=== PATIENT | male | born 1970 | race Caucasian/White ===

== ENCOUNTER 2019-05-09 21:05 | Emergency (ER) | payer SELFPAY ==
[~2019-05-09] VITALS: Ht 165.1 cm; Wt 69.4 kg
[~2019-05-09 21:05] MED LIST: GLIP10TA3 PO; METF500T PO; UNKNOWN INSULIN SUBQ
[2019-05-09 21:35] VITALS: BP 112/74
--- NOTE | 2019-05-09 21:49 | NUR ---
PT AMBULATED TO LOBBY TO A/W BED. CONCETTAD MADE AWARE OF PT [id number]
--- NOTE | 2019-05-09 22:55 | NUR ---
PT AMBULATED TO BED 12.
[2019-05-09] MEDS ORDERED: TETRACAINE HCL/PF 0.5% OPTH 4 ML BTL ONE (23:02)
[2019-05-09] MEDS: FLUORESCEIN OPTH STRIP 1 MG OP ONE (23:15)
[2019-05-09] MEDS: TETRACAINE HCL/PF 0.5% OPTH 4 ML BTL OP ONE (23:15)
--- NOTE | 2019-05-09 23:15 | NUR ---
DR TORIBIO AT BEDSIDE ASSESSING PATIENT
--- NOTE | 2019-05-09 23:30 | NUR ---
49 YEAR OLD MALE COMPLAINS OF SHARP EYE PAIN 10/10. PATIENTS LEFT EYEBALL WITH REDNESS, NO DISCHARGE PRESENT, SKIN SURROUNDING LEFT EYE IS INFLAMMED AND REDDENED. PATIENT STATES HE IS ABLE TO SEE NORMALLY OUT OF AFFECTED EYE. LACERATION NOTED ON LEFT CHEEK OF FACE. BED IN LOWEST POSITION, LOCKED, BED RAIL UPX1.
[2019-05-09 23:57] VITALS: BP 117/72
--- NOTE | 2019-05-09 23:57 | NUR ---
Discharge papers given to pt. He states pain reduced and tollerable. VSS. Lisbeth and verbal after care instructions given and explained. Patient alert, oriented and verbalized understanding of instructions. Ambulatory with steady gait. All questions addressed prior to discharge. ID band removed. Patient advised to follow up with PMD and instructed when to return to ER. Rx of Naprosyn given. Patient educated on indication of medication including possible reaction and side effects. Opportunity to ask questions provided and answered.
== END 2019-05-09 23:57 | disposition home or self-care (01) ==
LOC: MED 21:05
DX: S02.92XA Unspecified fracture of facial bones, initial encounter for closed fracture (principal); E11.9 Type 2 diabetes mellitus without complications; I10 Essential (primary) hypertension; Z79.84 Long term (current) use of oral hypoglycemic drugs; V09.9XXA Pedestrian injured in unspecified transport accident, initial encounter; Y93.89 Activity, other specified; Y92.89 Other specified places as the place of occurrence of the external cause; Y99.8 Other external cause status
CPT/HCPCS: 82948; 99284

== ENCOUNTER 2021-07-11 02:18 | Emergency (ER) | payer MEDICAID ==
[~2021-07-11] VITALS: Ht 165.1 cm; Wt 61.2 kg
[2021-07-11 02:26] VITALS: BP 158/103
--- NOTE | 2021-07-11 02:38 | NUR ---
pt taken to bed 02 via wc
[2021-07-11] MEDS ORDERED: HYDROcodone/APAP 5/325 MG 1 TAB TAB PO ONE (02:45)
[2021-07-11] MEDS ORDERED: CYCL-711 PO (02:46)
[2021-07-11 02:48] VITALS: BP 132/71
--- NOTE | 2021-07-11 02:52 | NUR ---
PATIENT DC HOME FEELING BETTER VITALS SIGNS IN NORMAL LIMITS ALL DC INSTRUCTION GAVE TO THE PATIENT WE RECOMMENDED TO FOLLOW UP WITH PCP OR COMING BACK TO THE EMERGENCY DEPARTMENT IF THE SYMPTOMS GET WORSE OR DOESNT IMPROVE //Kayla FAN
== END 2021-07-11 03:09 | disposition home or self-care (01) ==
LOC: MED 02:18
DX: S39.012A Strain of muscle, fascia and tendon of lower back, initial encounter (principal); E11.9 Type 2 diabetes mellitus without complications; I10 Essential (primary) hypertension; Z79.84 Long term (current) use of oral hypoglycemic drugs; Z79.899 Other long term (current) drug therapy; X58.XXXA Exposure to other specified factors, initial encounter; Y93.89 Activity, other specified; Y92.89 Other specified places as the place of occurrence of the external cause; Y99.8 Other external cause status
CPT/HCPCS: 99283

== ENCOUNTER 2021-07-14 01:21 | Emergency (ER) | payer MEDICAID ==
[~2021-07-14] VITALS: Ht 165.1 cm; Wt 65.8 kg
[~2021-07-14 01:21] MED LIST changes: +CYCL-711 PO
[2021-07-14 01:25] VITALS: BP 158/86
--- NOTE | 2021-07-14 01:25 | NUR ---
TO BED VIA WHEEL CHAIR
--- NOTE | 2021-07-14 01:36 | NUR ---
51 YO/M BIB SELF W C/O R LOWER BACK PAIN 03/07 X3 DAYS CONSTANT PRESSURE LIKE NON-RAD S/P FEELING APULL WHEN MOVING SELF FROM WHEELCHAIR TO BED. PT WAS SEEN HERE X3DAYS AGO AND DISCHARGED HOME BUT PAIN HAS NOT IMPROVED. PT DENIES BACK TRAUMA, LOSS OF CONTROL OVER BOWEL OR BLADDER, FEVERS, CHILLS, N/V/D. PT TOOK ADVIL [id number] AGO W/O RELIEF. PT LAYING PRONE IN BED. ERMD AT BEDSIDE ASSESSING PT. PMH:DIABETES ALLERGIES: DENIES
[2021-07-14] MEDS ORDERED: HYDROcodone/APAP 10/325 MG 1 TAB TAB PO STA (01:42)
--- NOTE | 2021-07-14 01:42 | NUR ---
Dr. Yoder examining patient.
[2021-07-14] MEDS ORDERED: LIDOCAINE 5% 1 EA PATCH TP SCH (01:45)
[2021-07-14] MEDS ORDERED: KETOROLAC 60 MG/2 ML VIAL IM ONE (01:45)
--- NOTE | 2021-07-14 02:29 | NUR ---
PT REPORTS PAIN IS IMPROVING.
--- NOTE | 2021-07-14 02:47 | NUR ---
PT APPEARS TO BE RESRTING W EYES CLOSED IN L LATERAL POSITION W X2 SIDERAILS UP FOR PT SAFETY. BREATHING EVEN AND UNLABORED. NAD NOTED, WILL CONTINUE TO MONITOR.
[2021-07-14] MEDS ORDERED: LID5T TP (02:49)
[2021-07-14] MEDS ORDERED: ACET-8386 PO (02:49)
--- NOTE | 2021-07-14 02:49 | NUR ---
PT UP FOR DC. PT TOLD TO REMOVE PATCH BY [id number] TODAY.
[2021-07-14 03:00] VITALS: BP 158/86
--- NOTE | 2021-07-14 03:00 | NUR ---
Patient discharged with v/s stable. Written and verbal after care instructions given and explained. Patient alert, oriented and verbalized understanding of instructions. Wheel Chair Assisted with to car. All questions addressed prior to discharge. ID band removed. Patient advised to follow up with PMD. Rx of NORCO, LIDODERM given. Patient educated on indication of medication including possible reaction and side effects. Opportunity to ask questions provided and answered.
== END 2021-07-14 03:00 | disposition home or self-care (01) ==
LOC: MED 01:21
DX: S39.012A Strain of muscle, fascia and tendon of lower back, initial encounter (principal); E11.9 Type 2 diabetes mellitus without complications; I10 Essential (primary) hypertension; Z89.512 Acquired absence of left leg below knee; Z79.84 Long term (current) use of oral hypoglycemic drugs; Z79.899 Other long term (current) drug therapy; X58.XXXA Exposure to other specified factors, initial encounter; Y93.89 Activity, other specified; Y92.89 Other specified places as the place of occurrence of the external cause; Y99.8 Other external cause status
CPT/HCPCS: 96372; 99283; J1885

== ENCOUNTER 2022-11-27 12:17 | Inpatient (IN) | payer MEDICAID ==
[~2022-11-27] VITALS: Ht 165.1 cm; Wt 79.4 kg
[~2022-11-27 12:17] MED LIST changes: +ACET-8905 PO; +LID5T TP; +METF-346 PO; -METF500T PO
[2022-11-27 12:28] VITALS: BP 156/116; PULSE 126; RESP 20; TEMP 98.9; O2SAT 98
[2022-11-27] MEDS ORDERED: ONDANSETRON 4 MG/2 ML VIAL IVP ONE (12:55)
[2022-11-27] MEDS ORDERED: NACL 0.9% 2,000 ML IV ONE (12:55)
--- NOTE | 2022-11-27 12:58 | NUR ---
X-Ray at bedside.
[2022-11-27 13:12] LABS: BASOPHILS # (AUTO) 0.1 K/uL (0.00-0.22); HEMATOCRIT 46.9 % (36-52); HEMOGLOBIN 16.3 g/dL (12.0-18.0); LYMPHOCYTES # (AUTO) 1.2 K/uL (2.0-11.5); LYMPHOCYTES % (AUTO) 12.4 % (20.5-51.1); MEAN CORPUSCULAR HEMOGLOBIN 32 pg (27-31); MEAN CORPUSCULAR HGB CONC 35 g/dL (33-37); MEAN CORPUSCULAR VOLUME 91.8 fL (80-94); MONOCYTES # (AUTO) 0.8 K/uL (0.8-1.0); MONOCYTES % (AUTO) 8.6 % (1.7-9.3); NEUTROPHILS # (AUTO) 7.6 K/uL (1.8-7.7); PLATELET COUNT (AUTO) 263 K/uL (140-450); RED BLOOD CELL COUNT(AUTO) 5.11 MIL/uL (4.20-6.10); RED CELL DISTRIBUTION WIDTH 13.1 % (11.6-13.7); WHITE BLOOD COUNT (AUTO) 9.7 K/uL (4.8-10.8)
--- NOTE | 2022-11-27 13:22 | NUR ---
VBG drawn and given to RT. Pt taken off unit to CT-SCAN.
[2022-11-27 13:34] LABS: ALBUMIN 3.4 g/dL (3.4-5.0); ANION GAP 16.2 (8-16); CARBON DIOXIDE 30.4 mmol/L (21-32); CREATININE 1.2 mg/dL (0.6-1.3); POTASSIUM 4.6 mmol/L (3.5-5.1); TOTAL BILIRUBIN 0.8 mg/dL (0.0-1.0)
--- NOTE | 2022-11-27 14:13 | NUR ---
CONTINUE TO AWAIT FOR UA SAMPLE. ENCOURAGED PT TO URINATE.
[2022-11-27 14:33] LABS: APPEARANCE,URINE CLEAR (CLEAR); BILIRUBIN,URINE NEGATIVE (NEGATIVE); BLOOD, URINE 3+ (NEGATIVE); COLOR,URINE YELLOW (YELLOW); LEUKOCYTE ESTERASE ,URINE NEGATIVE (NEGATIVE); NITRITE, URINE NEGATIVE (NEGATIVE); UGLUCOSE 3+ (NEGATIVE)
[2022-11-27] MEDS ORDERED: ASPIRIN 325 MG TAB PO ONE (14:40)
[2022-11-27 15:00] LABS: RBC,URINE 20-50 /HPF (0-5); YEAST,URINE Few /HPF (None Seen)
[2022-11-27] MEDS ORDERED: NACL 0.9% 1,000 ML IV ONE ×2 (15:15→15:50)
[2022-11-27] MEDS ORDERED: HUM SUBQ (15:16)
--- NOTE | 2022-11-27 15:17 | NUR ---
Pt awaiting to be updated by MD on possible admission status. Pt resting in bed without distress. Pt stated, he is starting to feel better. VS and pain starting to improve.
[2022-11-27] MEDS: NACL 0.9% 1,000 ML IV SCH (15:45)
[2022-11-27] MEDS ORDERED: ONDANSETRON 4 MG/2 ML VIAL IM/IVP PRN (15:45)
[2022-11-27] MEDS ORDERED: ACETAMINOPHEN 325 MG TAB PO PRN (15:45)
[2022-11-27] MEDS ORDERED: ZOLPIDEM 5 MG TAB PO PRN (15:45)
[2022-11-27] MEDS ORDERED: DOCUSATE SODIUM 100 MG GELCAP PO PRN (15:45)
[2022-11-27] MEDS ORDERED: guaiFENesin DM 200/20 MG-10 ML 10 ML UDC PO PRN (15:45)
[2022-11-27] MEDS ORDERED: POTASSIUM CHLORIDE 10 MEQ TABER PO PRN (15:45)
[2022-11-27] MEDS: INSULIN LANTUS 100 UNITS/ML 10 ML VIAL SUBQ SCH (15:50)
[2022-11-27] MEDS ORDERED: FLUCONAZOLE 100 MG TAB PO SCH (16:00)
[2022-11-27] MEDS ORDERED: cefTRIAXone 1,000 MG VIAL ONE (16:03)
--- NOTE | 2022-11-27 16:26 | NUR ---
PT TO GO TO ROOM 104 A. CALLED REPORT TO MENG CARLSON. RN IS ASKING FOR FLOOR REPORT. WILL GIVE BS REPORT ASKED. PT LEFT IN STABLE CONDITION WITH ACLS PROTOCOL IN PLACE. PT HAS IVF BOLUS ON GOING AT TIME OF TRANSFER. ESCORTED BY RN AND EMT.
--- NOTE | 2022-11-27 16:41 | NUR ---
RECEIVE ER NURSE CALL FOR BRIEF REPORT THAT 52 YRS MALE PATIENT WHO IS GOING TO ADMIT INTO 104A FOR NSTEMI & HYPERGLYCEMIA HAD 3 LITER BOLUS NS, DIFLUCAN, AND ROCEPHIN GIVE IN ER. WILL HAVE BESIDE REPORT IN 104A SHORTLY. Addendum: 11/27/22 at 1756 by Roslyn Landin RN @[id number] RECEIVE 52YRS CAMEROONIAN SPEAKING PATIENT IN [facility]; PATIENT ADMIT UNDER CARE OF DR. CARSON FOR UNCONTROLLED DM D/T UNDERLINING CONDITION OF HYPERGLYCEMIA, NSTEMI, UTI, SEPSIS, DEHYDRATION. PATIENT INITIAL CAME FOR DIFFUSE ABDOMINAL PAIN, WEAKNESS, VOMITING.WORSENING NAUSEA WITH HX OF DM TYPE II, HLD. 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 ON 2 LITER OXYGEN VIA NC, BED REST (USING CRUTCH FOR AMBULATION IN LONG-TERM), FULL CODE, NKA; CURRENTLY LACTIC ACID=2.4, BJWIHXAG=899. PIV AT L. FOREARM 20G INFUSING NS (AT 3RD LITER OF BOLUS). DIFLUCAN AND ROCEPHIN GIVEN IN ER. ON CARDIAC DIET; ALERT X 3 TO 4. ABLE TO MAKE NEED KNOW. URINAL AT BEDSIDE FOR COLLECT URINE (DRUG SCREEN), AND MRSA SPACEMEN COLLECT. WILL CONTINUE TO MONITOR
[2022-11-27 16:48] LABS: PROTHROMBIN TIME 9.6 secs (10.8-13.4)
[2022-11-27] MEDS ORDERED: ATORVASTATIN 20 MG TAB PO SCH (17:00)
[2022-11-27 17:02] LABS: CHOL/HDL RATIO 6.1 (1-4.5); MAGNESIUM 2.3 mg/dL (1.8-2.4); PHOSPHORUS 4.8 mg/dL (2.5-4.9); THYROID STIMULATING HORMONE 4.26 uIU/mL (0.34-3.74)
[2022-11-27 17:04] LABS: FREE T4 (FREE THYROXINE) 1.02 ng/dL (0.76-1.46)
[2022-11-27 17:31] VITALS: BP 150/97; PULSE 97; RESP 20; TEMP 98.5; O2SAT 100
[2022-11-27 17:57] VITALS: RESP 20; O2SAT 100
[2022-11-27 18:00] VITALS: PULSE 104
[2022-11-27 18:02] VITALS: PULSE 97; RESP 20; O2SAT 100
[2022-11-27 18:29] LABS: BARBITURATE, URINE NEGATIVE ng/ml (NEG <=200); BENZODIAZEPINE, URINE NEGATIVE ng/mL (NEG <=200); CANNABINOID, URINE NEGATIVE ng/mL (NEG <=50); COCAINE, URINE NEGATIVE ng/mL (NEG <=300); OPIATE, URINE NEGATIVE ng/mL (NEG <=2000); PHENCYCLIDINE SCREEN,URINE NEGATIVE ng/mL (NEG <=25)
[2022-11-27 20:00] VITALS: BP 161/100; PULSE 93; RESP 20; TEMP 98.9; O2SAT 98
[2022-11-27] MEDS ORDERED: DEXTROSE 50% 50 ML SYR IVP PRN (20:45)
[2022-11-27] MEDS: BLOOD GLUCOSE MONITORING 1 DEV DEV FS SCH (21:16)
[2022-11-27] MEDS: METOPROLOL 25 MG TAB PO SCH (21:18)
[2022-11-27] MEDS: INSULIN LISPRO SLIDING SCALE 100 UNITS/ML VIAL SUBQ PRN (21:22)
[2022-11-27] MEDS: metFORMIN 500 MG TAB PO SCH (21:33)
[2022-11-27] MEDS: HYDROcodone/APAP 7.5/325 MG 1 TAB PO PRN (21:38)
--- NOTE | 2022-11-27 21:38 | NUR ---
PT COMPLAINTS OF MODERATE ABDOMINAL PAIN 6/10, PAIN MEDICATION NORCO 7.5 ADMINISTERED ORDER.
--- NOTE | 2022-11-27 22:38 | NUR ---
REASSESSMENT OF PAIN. PT IS ASLEEP, NO FACIA GRIMACING
--- NOTE | 2022-11-27 23:00 | NUR ---
RECEIVED REPORT FROM LAB FOR ELEVATED TROPONIN 1148. REPORTED TO DR. GARCIA. ORDER HEPARIN DRIP.
[2022-11-28] VITALS (9 sets, daily range): BP systolic 125–158; BP diastolic 80–91; PULSE 69–80; RESP 18; TEMP 97.5–98.4; O2SAT 98–100
[2022-11-28] MEDS ORDERED: HEPARIN PER PHARMACY MC PRN (00:20)
[2022-11-28] MEDS ORDERED: hePARIN / DEXT 5% PREMIX 250 ML IV SCH (00:20)
--- NOTE | 2022-11-28 01:20 | NUR ---
ADMINISTERED HEPARIN 4700 UNIT ORDERED AND STARTS HEPARIN AT 950 UNITS.
[2022-11-28] MEDS: hePARIN / DEXT 5% PREMIX 250 ML IV SCH ×3 (01:25→23:32)
[2022-11-28] MEDS: NACL 0.9% 1,000 ML IV SCH ×3 (04:00→23:25)
[2022-11-28 05:37] LABS: BASOPHILS # (AUTO) 0.1 K/uL (0.00-0.22); BASOPHILS % (AUTO) 0.8 % (0.0-2.0); EOSINOPHILS # (AUTO) 0.1 K/uL (0-0.4); EOSINOPHILS % (AUTO) 0.9 % (0.0-4.0); HEMATOCRIT 40.2 % (36-52); HEMOGLOBIN 13.4 g/dL (12.0-18.0); LYMPHOCYTES # (AUTO) 2.4 K/uL (2.0-11.5); LYMPHOCYTES % (AUTO) 31.2 % (20.5-51.1); MEAN CORPUSCULAR HEMOGLOBIN 32 pg (27-31); MEAN CORPUSCULAR HGB CONC 33 g/dL (33-37); MEAN CORPUSCULAR VOLUME 95.5 fL (80-94); MONOCYTES # (AUTO) 0.8 K/uL (0.8-1.0); MONOCYTES % (AUTO) 9.9 % (1.7-9.3); NEUTROPHILS # (AUTO) 4.4 K/uL (1.8-7.7); NEUTROPHILS % (AUTO) 57.2 % (42.2-75.2); PLATELET COUNT (AUTO) 203 K/uL (140-450); RED BLOOD CELL COUNT(AUTO) 4.21 MIL/uL (4.20-6.10); WHITE BLOOD COUNT (AUTO) 7.8 K/uL (4.8-10.8)
[2022-11-28 05:47] LABS: ANION GAP 8.9 (8-16); CARBON DIOXIDE 32.7 mmol/L (21-32); CREATININE 0.9 mg/dL (0.6-1.3); POTASSIUM 3.6 mmol/L (3.5-5.1)
[2022-11-28] MEDS: BLOOD GLUCOSE MONITORING 1 DEV DEV FS SCH ×4 (06:34→20:08)
[2022-11-28] MEDS: INSULIN LISPRO SLIDING SCALE 100 UNITS/ML VIAL SUBQ PRN ×2 (06:36→11:45)
[2022-11-28] MEDS: INSULIN LANTUS 100 UNITS/ML 10 ML VIAL SUBQ SCH (08:39)
[2022-11-28] MEDS: ECOTRIN 81 MG TABEC PO SCH (08:42)
[2022-11-28] MEDS: FLUCONAZOLE 100 MG TAB PO SCH (08:42)
[2022-11-28] MEDS: METOPROLOL 25 MG TAB PO SCH ×2 (08:44→20:12)
[2022-11-28] MEDS: metFORMIN 500 MG TAB PO SCH ×2 (08:45→20:10)
[2022-11-28] MEDS: glipiZIDE 10 MG TAB PO SCH (08:45)
[2022-11-28] MEDS: PANTOPRAZOLE 40 MG TABEC PO SCH (08:45)
[2022-11-28] MEDS ORDERED: lisinopriL 5 MG TAB PO SCH (09:00)
--- NOTE | 2022-11-28 09:01 | NUR ---
RECEIVE LAB REPORT THAT PATIENT'S PTT=50.8 @0855, 11/28/2022. PER PROTOCOL, PATIENT'S HEPARIN DRIP RATE NO CHANGE. ORDER ANOTHER APTT 6 HOURS AFTER 0900 AT 1500. WILL CONTINUE TO MONITOR.
--- NOTE | 2022-11-28 09:25 | NUR ---
PATIENT HAS BEEN SCREENED AND CATEGORIZED MODERATE NUTRITION RISK. PATIENT WILL BE SEEN WITHIN 3-5 DAYS OF ADMISSION. 11/27/22-12/02/[address]
--- NOTE | 2022-11-28 17:24 | NUR ---
DC PLANNING: PATIENT HAS AN ORDER TO GO TO HIGHER LEVEL OF CARE FAXED TO INSURANCE TO GET THE AUTH. FAXED TO [facility] NOTIFIED ABIOLA ALICEA TO F/U. CM TO FOLLOW Addendum: 11/30/22 at 1226 by Lissette Smith RN DC PLANNING: [facility] CALLED [facility] SPOKE WITH NVEVENS BRICENO STATED [facility] IS DELEGATED FOR TRANSFER. CALLED [facility] IN [place] SPOKE WITH GABRIEL REQUESTED ALL THE INFORMATION OF [facility] AND ACCEPTING DR XIE AND TAX ID. [facility] CALLED [facility] SPOKE WITH FELICIA. PER FELICIA [facility] TAX ID [id number] AND ACCEPTING DR RAUL RIVER NPI # [id number]. [facility] PROVIDED ALL THE INFORMATION TO GABRIEL BRICENO AT [facility] AND PROVIDED THE PENDING AUTH # [id number] AWAITING FOR BED AT [facility]. CM TO FOLLOW Addendum: 11/30/22 at 1637 by Lissette Smith RN DC PLANNING: RECEIVED A CALL FROM [facility] ACCEPTED PATIENT BUT NO BED AVAILABLE YET, ARRANGED TRANSPORT WITH [facility] PLACE IT WILL CALL. [facility] TO FOLLOW Addendum: 11/30/22 at 1704 by Lissette Smith RN DC PLANNING: [facility] ARRANGED TRANSPORT WITH [facility] [phone] SPOKE WITH GENE ARRANGED AT 9PM RESERVATION # [id number] [facility] TRANSFER CENTER WILL CALL WHEN BED AVAILABLE, PLS CALL [phone] . PROVIDE HOUSE SUP NUMBER TO [facility] NOTIFIED CHARGE NURSE KARINA. [facility] TO FOLLOW.
--- NOTE | 2022-11-28 18:57 | NUR ---
PATIENT'S 0840"S PTT IS 50.8 WITHIN THERAPIA RANGE, NO CHANGE FOR HEPARIN DRIP RATE; AFTER 6 HOURS, AT 1500, SECOND PTT DRAW RESULT IS 42.7; NURSE CHANGE HEPARIN DRIP RATE TO 1100 UNIT/HR ACCORDING TO POLICY AFTER GIVE 2350 UNITS IV PUSH. NEXT SCHEDULED TIME DRAW IS 2230. NURSE ENDORSE ALL ABOVE INFORMATION TO PM SHIFT NURSE FOR F/U
--- NOTE | 2022-11-28 19:24 | NUR ---
RECEIVED REPORT FROM DAY SHIFT NURSE FOR CONTINUITY OF CARE. PATIENT IS AWAKE, ALERT AND ORIENTED X4, PORTUGUESE SPEAKING BUT DOES UNDERSTAND SOME CITIZEN OF [place]. CURRENTLY ON 2 LITERS NASAL CANULA WITH NO APPARENT SIGNS OF ACUTE DISTRESS NOTED. TWO IV SITES LOCATED AT RIGHT FOREARM 20 GAUGE, RUNNING HEPARIN DRIP AND IV FLUIDS. PATIENT REPORTS A 6/10 PAIN IN LOWER ABDOMEN. VITAL SIGNS TAKEN, WNL FOR PATIENT. CALL LIGHT WITHIN REACH, WILL MAKE FREQUENT ROUNDS
[2022-11-28] MEDS: lisinopriL 5 MG TAB PO SCH (20:11)
[2022-11-28] MEDS: HYDROcodone/APAP 7.5/325 MG 1 TAB PO PRN (20:13)
--- NOTE | 2022-11-28 20:15 | NUR ---
SCHEDULED MEDICATIONS ADMINISTERED WITH NO COMPLICATIONS. CHECKED PATIENTS BLOOD SUGAR = 147, NO COVERAGE NEEDED. NORCO 7.5/325 PO PRN WAS ADMINISTERED TO THE PATIENT FOR A PAIN LEVEL OF 6/10. PT TOLERATED WELL, WILL CONTINUE TO MONITOR.
--- NOTE | 2022-11-28 21:15 | NUR ---
REASSESSED PATIENTS PAIN LEVEL. PATIENT ASLEEP IN BED, NO S/SX OF PAIN OR DISTRESS NOTED. IV HEPARIN BAG CHANGED, CONTINUOUS DRIP INFUSING WELL.
--- NOTE | 2022-11-28 21:20 | NUR ---
no complain made , no s/sx of bleeding noted at this time - will ff up hep iv as ordered - will cont . to monitor , call light within reach .
--- NOTE | 2022-11-28 23:40 | NUR ---
CRITICAL LAB VALUE CAME BACK FOR PTT. NOTED AT 82.4. POC DISCUSSED AND HEPARIN CONTINUOUS DRIP RATE WAS ADJUSTED PER MD ORDER BY RN: SUH. WILL PLACE ORDER FOR NEW PTT 6 HOURS FROM WHEN THE DRIP WAS ADJUSTED.
[2022-11-29] VITALS (8 sets, daily range): BP systolic 121–157; BP diastolic 68–97; PULSE 56–70; RESP 16–20; TEMP 97.2–98.6; O2SAT 96–100
[2022-11-29] MEDS: BLOOD GLUCOSE MONITORING 1 DEV DEV FS SCH ×4 (06:35→20:22)
[2022-11-29] MEDS: HYDROcodone/APAP 7.5/325 MG 1 TAB PO PRN (06:37)
--- NOTE | 2022-11-29 06:39 | NUR ---
PATIENT COMPLAINT OF 6/10 HEADACHE PAIN. PATIENT STATED MASSAGING DID NOT HELP. MEDICATED W/ NORCO 7.5/325 MG PO PRN FOR MODERATE PAIN. PT TOLERATED WELL, WILL REASSESS PAIN LEVEL IN ONE HOUR.
--- NOTE | 2022-11-29 06:42 | NUR ---
PATIENT LAST BLOOD SUGAR = 130. NO COVERAGE NEEDED. NO ACUTE EVENTS OVERNIGHT, ALL PATIENT NEEDS MET. WILL ENDORSE TO DAY SHIFT NURSE IN STABLE CONDITION.
[2022-11-29 07:03] LABS: MAGNESIUM 1.9 mg/dL (1.8-2.4); PHOSPHORUS 3.6 mg/dL (2.5-4.9)
[2022-11-29 07:04] LABS: ANION GAP 7.4 (8-16); CARBON DIOXIDE 31.1 mmol/L (21-32); CREATININE 0.8 mg/dL (0.6-1.3); POTASSIUM 3.5 mmol/L (3.5-5.1)
[2022-11-29 07:10] LABS: BASOPHILS % (AUTO) 0.5 % (0.0-2.0); EOSINOPHILS # (AUTO) 0.1 K/uL (0-0.4); EOSINOPHILS % (AUTO) 2.2 % (0.0-4.0); HEMATOCRIT 36.4 % (36-52); HEMOGLOBIN 12.6 g/dL (12.0-18.0); LYMPHOCYTES # (AUTO) 2.3 K/uL (2.0-11.5); LYMPHOCYTES % (AUTO) 42.2 % (20.5-51.1); MEAN CORPUSCULAR HEMOGLOBIN 32 pg (27-31); MEAN CORPUSCULAR HGB CONC 35 g/dL (33-37); MEAN CORPUSCULAR VOLUME 93.1 fL (80-94); MONOCYTES # (AUTO) 0.5 K/uL (0.8-1.0); MONOCYTES % (AUTO) 8.6 % (1.7-9.3); NEUTROPHILS # (AUTO) 2.5 K/uL (1.8-7.7); NEUTROPHILS % (AUTO) 46.5 % (42.2-75.2); PLATELET COUNT (AUTO) 178 K/uL (140-450); RED BLOOD CELL COUNT(AUTO) 3.91 MIL/uL (4.20-6.10); WHITE BLOOD COUNT (AUTO) 5.4 K/uL (4.8-10.8)
--- NOTE | 2022-11-29 07:15 | NUR ---
RECEIVED BEDSIDE REPORT FROM MORNING SHIFT FOR CONTINUITY OF CARE. PT IS ASLEEP, AWAKEN BY NAME, NO SIGN OF DISTRESS. CALL LIGHT WITHIN REACH.
[2022-11-29 08:08] LABS: T4 (THYROXINE) 5.5 ug/dL (4.5-12.0)
[2022-11-29] MEDS: ECOTRIN 81 MG TABEC PO SCH (08:51)
[2022-11-29] MEDS: FLUCONAZOLE 100 MG TAB PO SCH (08:52)
[2022-11-29] MEDS: PANTOPRAZOLE 40 MG TABEC PO SCH (08:53)
[2022-11-29] MEDS: metFORMIN 500 MG TAB PO SCH ×2 (08:53→20:19)
[2022-11-29] MEDS: ATORVASTATIN 80 MG TAB PO SCH (08:54)
[2022-11-29] MEDS: lisinopriL 5 MG TAB PO SCH (08:54)
[2022-11-29] MEDS: METOPROLOL 25 MG TAB PO SCH (08:55)
[2022-11-29] MEDS: glipiZIDE 10 MG TAB PO SCH (08:55)
[2022-11-29] MEDS: NACL 0.9% 1,000 ML IV SCH ×2 (09:21→17:45)
[2022-11-29] MEDS: INSULIN LANTUS 100 UNITS/ML 10 ML VIAL SUBQ SCH (09:23)
--- NOTE | 2022-11-29 13:04 | NUR ---
Per Dr. Morales, patient need to go to another hospital for cardiac cath. Dr. Land aware. Faxed clinicals to [facility] and spoke to phyllis hartman. also faxed clinicals to [facility] transfer center and spoke to Gallo. Also contacted the insurance but message said closed for the holiday.
--- NOTE | 2022-11-29 13:07 | NUR ---
packing supervisor at [facility] called back and stated that not able to accept patient due to lack of services that they have at [facility].
[2022-11-29] MEDS: INSULIN LISPRO SLIDING SCALE 100 UNITS/ML VIAL SUBQ PRN (13:32)
[2022-11-29] MEDS: hePARIN / DEXT 5% PREMIX 250 ML IV SCH ×2 (13:41→19:02)
--- NOTE | 2022-11-29 19:35 | NUR ---
ENDORSED PT TO DOLL REPAIRER NURSE FOR CONTINUITY OF CARE, PT STILL ON HEPARIN AWAITING APTT. NO SIGN OF DISTRESS, CALL LIGHT WITHIN REACH.
--- NOTE | 2022-11-29 19:36 | NUR ---
RECEIVED PT FROM MORNING SHIFT NURSE. PT IS AOX4, ARABIC SPEAKING, ABLE TO VERBALIZE NEEDS AND ABLE TO FOLLOW COMMANDS. PT IS AMBULATORY WITH CRUTCHES. PT IS ON 2L NC AND ON CARDIAC DIET. PT HAS 2 IV ON RIGHT FOREARM GAUGE 20 RUNNING WITH NS AT 100ML/HR AND ANOTHER INNER RIGHT FOREARM RUNNING WITH HEPARIN AT 1,100INITS/HR. PT HAS LEFT BKA WITH SMALL SCAN ON IT. PT DENOIES PAIN AT THIS TIME. NO S/S OF RESPIRATORY DISTRESS NOTED. ALL SAFETY MEASURES IMPLEMENTED. BED IN LOW POSITION, BED WHEELS ON LOCK AND CALL LIGHT WITHIN REACH.
[2022-11-29] MEDS: carvediloL 12.5 MG TAB PO SCH (20:18)
[2022-11-29] MEDS: lisinopriL 20 MG TAB PO SCH (20:19)
--- NOTE | 2022-11-29 20:19 | NUR ---
AL SCHEDULED AND PRESCRIBED MEDICATION WAS GIVEN TO PT PER MD ORDER. ALL SAFETY MEASURES IMPLEMENTED. BED IN LOW POSITION, BED WHEELS ON LOCK AND CALL LIGHT WITHIN REACH.
--- NOTE | 2022-11-29 20:22 | NUR ---
PT BLOOD GLUCOSE IS 129. NO INSULIN COVERAGE NEEDED.
[2022-11-29] MEDS ORDERED: lisinopriL 10 MG TAB PO SCH (21:00)
--- NOTE | 2022-11-29 22:00 | NUR ---
PT WAS GIVEN WATER PER PT REQUEST. NO COMPLAIN OF PAIN AT THIS TIME. NO S/S OF RESPIRATORY DISTRESS NOTED. ALL SAFETY MEASURES IMPLEMENTED. BED IN LOW POSITION, BED WHEELS ON LOCK AND CALL LIGHT WITHIN REACH.
[2022-11-30] VITALS (9 sets, daily range): BP systolic 127–164; BP diastolic 71–97; PULSE 63–83; RESP 18; TEMP 97.7–98.2; O2SAT 90–98
--- NOTE | 2022-11-30 | NUR ---
PT IS ON SLEEP. CHEST RISE AND FALL SYMMETRICALLY NOTED. RESPIRATION IS EVEN AND UNLABORED. ALL SAFETY MEASURES IMPLEMENTED. BED IN LOW POSITION, BED WHEELS ON LOCK AND CALL LIGHT WITHIN REACH.
--- NOTE | 2022-11-30 02:00 | NUR ---
CHECKED THE PT, STILL ON SLEEP. CHEST RISE AND FALL SYMMETRICALLY NOTED. RESPIRATION IS EVEN AND UNLABORED. ALL SAFETY MEASURES IMPLEMENTED. BED IN LOW POSITION, BED WHEELS ON LOCK AND CALL LIGHT WITHIN REACH.
--- NOTE | 2022-11-30 02:50 | NUR ---
RECEIVED A CALL FROM THE LAB REGARDING PT'S PTT OF 86.6. HEPARIN DRIP WAS ADJUSTED TO 950 UNITS/HR. ALL SAFETY MEASURES IMPLEMENTED. BED IN LOW POSITION, BED WHEELS ON LOCK AND CALL LIGHT WITHIN REACH.
[2022-11-30] MEDS: HYDROcodone/APAP 7.5/325 MG 1 TAB PO PRN ×3 (03:15→23:44)
--- NOTE | 2022-11-30 03:15 | NUR ---
PRN PAIN MEDICATION WAS GIVEN TO PT DUE TO ABD PAIN WITH PAIN SCALE OF 6/10. ALL SAFETY MEASURES IMPLEMENTED. BED IN LOW POSITION, BED WHEELS ON LOCK AND CALL LIGHT WITHIN REACH.
[2022-11-30] MEDS: NACL 0.9% 1,000 ML IV SCH ×3 (04:04→23:45)
--- NOTE | 2022-11-30 05:10 | NUR ---
FOUND PT ON 1L NC. NO SIGNS OF SOB. BREATH SOUNDS DIMINISHED/CLEAR. PT SATTING 99 ON 1L NC. TOOK PT OFF.
[2022-11-30 06:34] LABS: BASOPHILS % (AUTO) 0.4 % (0.0-2.0); EOSINOPHILS # (AUTO) 0.1 K/uL (0-0.4); EOSINOPHILS % (AUTO) 1.5 % (0.0-4.0); HEMATOCRIT 38.6 % (36-52); LYMPHOCYTES # (AUTO) 1.8 K/uL (2.0-11.5); LYMPHOCYTES % (AUTO) 31.8 % (20.5-51.1); MEAN CORPUSCULAR HEMOGLOBIN 32 pg (27-31); MEAN CORPUSCULAR HGB CONC 34 g/dL (33-37); MEAN CORPUSCULAR VOLUME 94.4 fL (80-94); MONOCYTES # (AUTO) 0.5 K/uL (0.8-1.0); MONOCYTES % (AUTO) 9.1 % (1.7-9.3); NEUTROPHILS # (AUTO) 3.3 K/uL (1.8-7.7); NEUTROPHILS % (AUTO) 57.2 % (42.2-75.2); PLATELET COUNT (AUTO) 178 K/uL (140-450); RED BLOOD CELL COUNT(AUTO) 4.09 MIL/uL (4.20-6.10); RED CELL DISTRIBUTION WIDTH 12.8 % (11.6-13.7); WHITE BLOOD COUNT (AUTO) 5.7 K/uL (4.8-10.8)
[2022-11-30] MEDS: BLOOD GLUCOSE MONITORING 1 DEV DEV FS SCH ×4 (06:35→20:23)
[2022-11-30 06:46] LABS: PHOSPHORUS 3.7 mg/dL (2.5-4.9)
[2022-11-30 06:47] LABS: ANION GAP 9.3 (8-16); CARBON DIOXIDE 30.1 mmol/L (21-32); CREATININE 0.7 mg/dL (0.6-1.3); POTASSIUM 3.4 mmol/L (3.5-5.1)
--- NOTE | 2022-11-30 07:28 | NUR ---
PT IS STABLE. ENDORSED PT TO MORNING SHIFT NURSE FOR CONTINUITY OF CARE.
--- NOTE | 2022-11-30 07:30 | NUR ---
received pt from night rn, pt is awake, alert and oriented, lying on the bed with side rails up and call light within reach, pt's crutches on bedside, pt is on room air, iv line noted on the right forearm g. 20 with ns infusing at 100ml/hr, and on the right forearm g. 20 with heparin drip infusing at 950 units/hr, no sign of distress noted and will continue to monitor pt.
--- NOTE | 2022-11-30 07:59 | NUR ---
RECEIVED PATIENT ON ROOM AIR. PATIENT WAS RESTING, NO DISTRESS NOTED. PATIENT SATURATIONS AT 90%. WILL CONTINUE TO MONITOR.
[2022-11-30] MEDS: metFORMIN 500 MG TAB PO SCH ×2 (08:18→20:22)
[2022-11-30] MEDS: ECOTRIN 81 MG TABEC PO SCH (08:19)
[2022-11-30] MEDS: glipiZIDE 10 MG TAB PO SCH (08:19)
[2022-11-30] MEDS: lisinopriL 20 MG TAB PO SCH ×2 (08:19→20:22)
[2022-11-30] MEDS: ATORVASTATIN 80 MG TAB PO SCH (08:19)
[2022-11-30] MEDS: PANTOPRAZOLE 40 MG TABEC PO SCH (08:20)
[2022-11-30] MEDS: hydrALAZINE 10 MG TAB PO SCH ×4 (08:20→16:42)
[2022-11-30] MEDS: carvediloL 12.5 MG TAB PO SCH ×2 (08:20→20:23)
--- NOTE | 2022-11-30 08:20 | NUR ---
PT WAS GIVEN THE SCHEDULED MEDICATIONS NOW, PARAMETERS CHECKED, TOLERATED.
[2022-11-30] MEDS: FLUCONAZOLE 100 MG TAB PO SCH (08:21)
[2022-11-30] MEDS: INSULIN LANTUS 100 UNITS/ML 10 ML VIAL SUBQ SCH (08:22)
--- NOTE | 2022-11-30 10:15 | NUR ---
PT WAS ASSISTED TO THE BATHROOM NOW AND PT HAD A BOWEL MOVEMENT, SOFT FORMED AND COLORED BLACK.
--- NOTE | 2022-11-30 10:33 | NUR ---
RECEIVED A CRITICAL LAB RESULT FOR PTT 66.1, PT'S HEPARIN DRIP IS INFUSING AT 950 UNITS/HR NOW, PER PHARMACY PROTOCOL NO CHANGE NEEDS TO BE DONE.
[2022-11-30] MEDS: INSULIN LISPRO SLIDING SCALE 100 UNITS/ML VIAL SUBQ PRN (11:57)
--- NOTE | 2022-11-30 12:10 | NUR ---
Customizer AIR D[employer]ER called pts. dtr who stated pt. resides in a correction with and 2 dtrs, herself, Loida 16 and 17 year old dtr. They have resided in a correction in [place] for the past 8 months. They all share a small room. They correction is trying to assist with housing and Sec. 8 housing paperwork. Lluvia stated she was able to attend high school and will be a oliva, was a good historian. Dtr. and mom will be back at the hospital to be with pt. and ask more questions about pts. care, condition and plan of care to a HLOC. Dt, stated pt has a prosthetic and is a diabetic. 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 Addendum: 11/30/22 at 1615 by Ester Stanton Customizer AIR DRIER met with pt. bedside. highway maintenance worker translated for AIR DRIER. AIR DRIER shared some resources with pt. but explained she understands his correction in [address] where he and family share a room in this correction. AIR DRIER explained she wanted to provide resources for substance abuse as he tested positive for amphet. PT. stated it must be his daugther. AIR DRIER clarified and stated the positive test was from when he was admitted and so this habit is going to make his health issues more complicated. PT. stated he understands and he just used a little. He has been clean for over a year and now regrets using just a little. AIR DRIER suggested he calls for substance abuse counseling. Pt. thanked AIR DRIER for all the resources.
--- NOTE | 2022-11-30 16:09 | NUR ---
RECEIVED A CRITICAL LAB RESULT OF PTT OF 54.6
--- NOTE | 2022-11-30 18:40 | NUR ---
PT WAS ASSISTED TO THE BATHROOM
--- NOTE | 2022-11-30 19:25 | NUR ---
ENDORSED PT TO NIGHT RN FOR CONTINUITY OF CARE.
--- NOTE | 2022-11-30 19:30 | NUR ---
RECEIVED PATIENT FROM DAY RN FOR CONTINUITY OF CARE.PT AWAKE, ALERT AND ORIENTED X 4, ON ROOM AIR. PATIENT WAS RESTING, NO DISTRESS NOTED. PATIENT SATURATIONS AT 94%. PT ON HEPARIN DRIP 950UNITS/HR. ALL PRECAUTIONS IN PLACE. CALL LIGHT WITHIN REACH.WILL CONTINUE TO MONITOR.
--- NOTE | 2022-11-30 19:31 | NUR ---
PT SEEN AND ASSESSED. PT ON ROOM AIR WITH SPO2 OF 98%. NO RESPIRATORY DISTRESS NOTED AT THIS TIME.
--- NOTE | 2022-11-30 21:06 | NUR ---
PER RECONCILIATION ACCOUNTANTSERJIO NO BED AVAILABLE AT THIS TIME AT [facility]. SPOKE WITH SARIKA OF [facility] TO CANCEL TRANSPORTATION, ACCORDING TO HIM IT WAS CANCELLED AT 1850. TRANSPORTATION CANCELLED. Addendum: 11/30/22 at 2114 by Kamryn Holt RN RECONCILIATION ACCOUNTANT'S NAME FROM [place] IS [facility]. NO AVAILABLE BED AT THIS TIME.
[2022-11-30] MEDS: hePARIN / DEXT 5% PREMIX 250 ML IV SCH (21:29)
[2022-12-01] VITALS: BP 155/85; PULSE 73; PULSE 81; RESP 18; TEMP 98.1; O2SAT 98
--- NOTE | 2022-12-01 00:20 | NUR ---
FURNITURE REPRODUCER CALLED PT HAS A ROOM AT [facility]. CALL PLACED TO [facility], SPOKE WITH SARITA GUIDO #[id number] ETA [phone].
--- NOTE | 2022-12-01 00:36 | NUR ---
PER BARGAIN TABLE CLERK [facility] CALLED AND BED WAS GIVEN. PT WILL GO TO ROOM 344 B. WILL ARRANGE TRANSPORT.
--- NOTE | 2022-12-01 00:47 | NUR ---
REPORT GIVEN TO MENG KNAPP. PT GOING TO [facility] ROOM 344B.
--- NOTE | 2022-12-01 00:51 | NUR ---
TRANSPORT CALLED, PATIENT WILL BE PICKED UP BY [facility] AT 0400AM.
--- NOTE | 2022-12-01 01:45 | NUR ---
INFORMED DR WANG IF HE WANTS PT TO BE TRANSFERRED WITH HEPARIN DRIP OR DC BEFORE TRANSFER. DR. WANG WANTED TO TRANSFER PT WITH HEPARIN DRIP. WILL INFORM [facility].
--- NOTE | 2022-12-01 01:48 | NUR ---
SPOKE TO SUSIE FROM [facility] REGARDING TRANSPORT AND STATED THAT [facility] CANCELLED THE TRANSPORT AND SET UP A NEW TRANSPORT WITH [facility] AND PT WILL BE PICKED UP AT 12NOON DUE TO PT BEING TRANSPORTED WITH HEPARIN AND NEEDS A NURSE ONBOARD.
--- NOTE | 2022-12-01 03:15 | NUR ---
PT PICKED UP BY [facility] TRANSPORT GOING TO [place]. PT IS STABLE.
== END 2022-12-01 03:18 | DRG 190 ==
LOC: MED 12:17 → MTU 15:45
PROVIDERS: ADMIT Family Medicine; ATTEND Family Medicine
DX: I21.4 Non-ST elevation (NSTEMI) myocardial infarction (principal); E11.10 Type 2 diabetes mellitus with ketoacidosis without coma; E11.65 Type 2 diabetes mellitus with hyperglycemia; E78.5 Hyperlipidemia, unspecified; E86.0 Dehydration; B37.9 Candidiasis, unspecified; K27.9 Peptic ulcer, site unspecified, unspecified as acute or chronic, without hemorrhage or perforation; N20.0 Calculus of kidney; F15.10 Other stimulant abuse, uncomplicated; Z20.822 Contact with and (suspected) exposure to COVID-19; Z79.4 Long term (current) use of insulin; Z79.899 Other long term (current) drug therapy; N39.0 Urinary tract infection, site not specified
CPT/HCPCS: 36415; 71045; 80048; 80053; 80305; 81001; 82150; 82803; 82948; 83036; 83605; 83690; 83735; 83880; 84100; 84436; 84439; 84443; 84479; 84484; 85025; 85610; 85730; 87040; 87081; 87086; 93005; 96361; 96365; 96375; 99291; J0696; J1644; J1815; J2405; J7060